=== PATIENT | female | born 1965 | race Two or more races ===

== ENCOUNTER 2019-10-19 12:30 | Emergency (ER) | payer SELFPAY ==
[~2019-10-19] VITALS: Ht 165.1 cm; Wt 60.0 kg
[2019-10-19 15:42] VITALS: BP 122/81
== END 2019-10-19 17:01 | disposition left against medical advice (07) ==
LOC: ER 12:30
DX: Z53.21 Procedure and treatment not carried out due to patient leaving prior to being seen by health care provider (principal)